=== PATIENT | male | born 1950 | race Caucasian/White ===

== ENCOUNTER → 2016-05-04 | Outpatient (CLI) | payer BC ==
[2014-09-13 09:10] VITALS: BP 133/76
[~2016-05-04] MED LIST: ACET-1570 PO; ALLO300T PO; ASPI81TA2 PO; CYAN1TAB15 SL; FISH1CAP PO; LISI10TA2 PO; METO25TA9 PO; NITR0.4T SL; PIOG15TA2 PO; SIMV20TA3 PO; ZOLP12.54 PO
[2016-05-04 12:42] LABS: BASO # 0.1 x10^3/uL (0.0-0.2); BASO % 1 % (0-3); EOS % 3 % (0-3); HEMATOCRIT 48.2 % (39.0-53.0); HEMOGLOBIN 16.6 g/dL (13.0-17.5); LYMPH # 1.5 x10^3/uL (1.0-4.8); LYMPH % 17 % (24-48); MEAN CORPUSCULAR HEMOGLOBIN 30 pg (25-35); MEAN CORPUSCULAR HGB CONC 34 g/dL (31-37); MEAN CORPUSCULAR VOLUME 87 fL (79-100); MONO % 7 % (0-9); NEUT % 72 % (31-73); PLATELET COUNT 228 x10^3/uL (140-400); RED BLOOD COUNT 5.51 x10^6/uL (4.30-5.70); RED CELL DISTRIBUTION WIDTH 13.9 % (11.5-14.5); WHITE BLOOD COUNT 9.2 x10^3/uL (4.0-11.0)
== END | disposition home or self-care (01) ==
LOC: LAB 12:23
PROVIDERS: ATTEND Orthopaedic Surgery
DX: M25.511 Pain in right shoulder (principal)
CPT/HCPCS: 36415; 85027; 85651; 86140

== ENCOUNTER → 2016-05-10 | Outpatient (CLI) | payer BC ==
[2014-09-13 09:10] VITALS: BP 133/76
[~2016-05-10] MED LIST changes: +GADOBUTROL 7.5 MMOL/7.5 ML VIAL INT ART ONE; +IOHEXOL 300 MG/ML 50 ML VIAL. INT ART ONE; +LIDOCAINE 1% Multi-Dose 20 ML VIAL. ID ONE
--- NOTE | 2016-05-10 14:38 | KCIC ---
PROCEDURE MRI of the cervical spine without contrast 05/10/2016 HISTORY Neck pain which radiates down the right shoulder. TECHNIQUE Unenhanced T1 weighted, T2 weighted and inversion recovery sagittal and gradient echo and T2 weighted axial images of the cervical spine were obtained. FINDINGS Minimal lateral curvature of the cervical spine is seen convex to the right. There is mild straightening of the normal cervical lordosis. Degenerative signal changes are seen involving all of the discs of the cervical spine. The marrow signal of the visualized bony structures is within normal limits. The cervical spinal cord is normal in morphology, position, and signal characteristics. On the axial images degenerative changes are seen throughout the cervical disc spaces consisting of minimal to mild generalized disc bulges and degenerative changes involving the uncovertebral and facet joints. Small superimposed focal disc protrusions are seen which measure 2 millimeters in AP diameter. These findings do not result in significant central spinal canal or neural foraminal stenosis at any level. IMPRESSION Degenerative changes are seen involving the cervical spine. These findings do not result in significant central spinal canal or neural foraminal stenosis at any level. Electronically signed by: Connor Abebe MD (May 10, 2016 14:36:00)
--- NOTE | 2016-05-10 15:29 | KCIC ---
PROCEDURE MR arthrogram of the right shoulder HISTORY Right shoulder pain for 6-8 months. Rotator cuff and biceps tendon repair June 2015. COMPARISON None TECHNIQUE Intra-articular contrast injected prior to the scan, and reported separately. The standard 4 plane sequences were obtained including ABER positioning. FINDINGS Mild degenerative osteoarthritis of the acromioclavicular joint. Evidence of rotator cuff repair with suture anchors at the humeral head. Diffuse thinning of the undersurface of supraspinatus and infraspinatus tendons, greatest at the supraspinatus myotendinous junction measuring as thin as 2 mm.. No evidence of a through and through rupture. No evidence of subscapularis tendon tear. Some contrast within the subscapularis is thought to be due to the injection. Contrast does accumulate within the subdeltoid bursa. Blunting and deformity of the superior labrum and to a lesser extent the posterior labrum, compatible with tearing, unless postsurgical. The proximal biceps tendon is poorly visualized. No bone lesion or acute fracture. No acute soft tissue injury. IMPRESSION 1. Diffuse thinning of the supraspinatus and infraspinatus tendons, could be due to the nature the reattached tendon. No through and through full-thickness rupture. 2. Small and blunted posterosuperior labrum compatible with tearing unless this is postsurgical. 3. Poorly seen proximal biceps tendon. Electronically signed by: Feliz Marcos MD (May 10, 2016 15:27:45)
--- NOTE | 2016-05-10 16:58 | KCIC ---
PROCEDURE: Right shoulder injection using fluoroscopic guidance, prior to MR. HISTORY: Shoulder pain. TECHNIQUE: The procedure was explained to the patient as were potential risks, including among others infection, bleeding or allergic reaction. All questions were answered. Informed written and verbal consent was obtained. The shoulder was prepped and draped in the usual sterile manner. Following administration of local anesthetic, a 22-gauge needle was advanced into the anterior shoulder. Following negative aspiration, 12 cc of a solution of 5cc Omnipaque-300 contrast, 5 cc 1% lidocaine, 10 cc normal saline, and 0.1 cc gadolinium was injected without difficulty. The needle was removed. There was good hemostasis at the injection site. The patient left in stable condition without immediate complication. The patient was given postprocedural instructions, and instructed to contact us or the ER if there are any complications. A single spot image is obtained. FLUOROSCOPY TIME: 38 seconds Electronically signed by: Feliz Marcos MD (May 10, 2016 16:56:25)
== END | disposition home or self-care (01) ==
LOC: KCIC 10:22
PROVIDERS: ATTEND Orthopaedic Surgery
DX: S43.421A Sprain of right rotator cuff capsule, initial encounter (principal); M75.21 Bicipital tendinitis, right shoulder
CPT/HCPCS: 72141; 73040; 73222; Q9967; A9585

== ENCOUNTER → 2016-06-14 | Outpatient (CLI) | payer BC ==
[2014-09-13 09:10] VITALS: BP 133/76
[~2016-06-14] MED LIST changes: -GADOBUTROL 7.5 MMOL/7.5 ML VIAL INT ART ONE; -IOHEXOL 300 MG/ML 50 ML VIAL. INT ART ONE; -LIDOCAINE 1% Multi-Dose 20 ML VIAL. ID ONE
[2016-06-14 10:18] LABS: BILIRUBIN,URINE SMALL (NEG); GLUCOSE,URINE NEGATIVE (NEG); NITRITE,URINE NEGATIVE (NEG); PH,URINE 5.5; PROTEIN,URINE 30 mg/dL (NEG-TRACE)
--- NOTE | 2016-06-14 10:26 | EKG ---
[facility] [address] [place] [address] Test Date: 2016-06-14 Test Time: 10:27:25 Pat Name: SERENA KIRKPATRICK Department: Room: Gender: M Java Application Developer: TV : 1950 Requested By: MECHE RALPH Order Number: [id number] Reading MD: Zion Barker Measurements Intervals [place] Rate: 59 P: 40 LA: 184 QRS: -4 QRSD: 100 T: 22 QT: 410 QTc: 410 Interpretive Statements SINUS RHYTHM Electronically Signed On 06-15-2016 12:24:59 CDT by Zion Barker
[2016-06-14 10:32] LABS: BACTERIA,URINE FEW /HPF (0-FEW); SQUAMOUS EPITHELIAL CELL,UR FEW /LPF; WBC,URINE OCC /HPF (0-4)
[2016-06-14 11:33] LABS: BASO # 0.1 x10^3/uL (0.0-0.2); BASO % 1 % (0-3); EOS % 4 % (0-3); HEMATOCRIT 46.5 % (39.0-53.0); HEMOGLOBIN 15.6 g/dL (13.0-17.5); LYMPH # 1.3 x10^3/uL (1.0-4.8); LYMPH % 24 % (24-48); MEAN CORPUSCULAR HEMOGLOBIN 30 pg (25-35); MEAN CORPUSCULAR HGB CONC 34 g/dL (31-37); MEAN CORPUSCULAR VOLUME 90 fL (79-100); MONO % 9 % (0-9); NEUT % 62 % (31-73); PLATELET COUNT 204 x10^3/uL (140-400); RED BLOOD COUNT 5.15 x10^6/uL (4.30-5.70); RED CELL DISTRIBUTION WIDTH 13.7 % (11.5-14.5); WHITE BLOOD COUNT 5.2 x10^3/uL (4.0-11.0)
[2016-06-14 11:43] LABS: INR 1.1 (0.8-1.1); PROTHROMBIN TIME PATIENT 13.4 SEC (11.7-14.0)
[2016-06-14 11:47] LABS: CREATININE 0.9 mg/dL (0.7-1.3); GFR 84.7; POTASSIUM 3.1 mmol/L (3.5-5.1)
--- NOTE | 2016-06-14 14:23 | RAD ---
Chest, 2 views, 06/14/2016: History: Preop evaluation for rotator cuff surgery. The heart size and pulmonary vascularity are normal. There is calcific plaquing of the aorta. There is mild bibasilar linear scarring or atelectasis. The lungs are otherwise clear. There is no evidence of pleural fluid. IMPRESSION: 1. Aortic atherosclerosis. 2. Mild bibasilar linear scarring or atelectasis.
== END | disposition home or self-care (01) ==
LOC: SURGPAT 09:49
PROVIDERS: ATTEND Orthopaedic Surgery
DX: Z01.818 Encounter for other preprocedural examination (principal)
CPT/HCPCS: 36415; 71020; 80048; 81001; 82040; 83036; 85027; 85610; 85651; 85730; 87641; 93005

== ENCOUNTER 2017-04-19 18:12 | Emergency (ER) | payer OTHER, MEDICARE, BC | END 2017-04-19 20:04 | disposition home or self-care (01) | LOC: ER 18:12 | DX: T14.8XXA Other injury of unspecified body region, initial encounter (principal); E11.9 Type 2 diabetes mellitus without complications; E78.00 Pure hypercholesterolemia, unspecified; I10 Essential (primary) hypertension; Z90.49 Acquired absence of other specified parts of digestive tract; Z95.5 Presence of coronary angioplasty implant and graft; Z88.8 Allergy status to other drugs, medicaments and biological substances; V43.52XA Car driver injured in collision with other type car in traffic accident, initial encounter; Y93.I9 Activity, other involving external motion; Y92.410 Unspecified street and highway as the place of occurrence of the external cause; Y99.8 Other external cause status | CPT/HCPCS: 99283 ==

== ENCOUNTER 2018-10-05 07:21 | Emergency (ER) | payer BC, OTHER ==
[~2018-10-05] VITALS: Ht 182.9 cm; Wt 126.1 kg
[~2018-10-05 07:21] MED LIST changes: -ACET-1570 PO; +ACET-1571 PO; +ASPI-630 PO; -ASPI81TA2 PO; +CYCL5TAB PO; +HYDR-3164 PO; +METO-239 PO; -METO25TA9 PO; -PIOG15TA2 PO; +PIOG15TA63 PO
[2018-10-05] MEDS ORDERED: ACETAMINOPHEN 500 MG TABLET PO ONE (07:30)
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
[2018-10-05 08:14] VITALS: BP 170/82
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
[2018-10-05] MEDS ORDERED: CYCL10TA2 PO (08:32)
== END 2018-10-05 08:38 | disposition home or self-care (01) ==
LOC: ER 07:21
DX: S16.1XXA Strain of muscle, fascia and tendon at neck level, initial encounter (principal); S29.012A Strain of muscle and tendon of back wall of thorax, initial encounter; S39.012A Strain of muscle, fascia and tendon of lower back, initial encounter; E11.9 Type 2 diabetes mellitus without complications; E78.00 Pure hypercholesterolemia, unspecified; I10 Essential (primary) hypertension; Z90.49 Acquired absence of other specified parts of digestive tract; Z88.8 Allergy status to other drugs, medicaments and biological substances; V43.92XA Unspecified car occupant injured in collision with other type car in traffic accident, initial encounter; Y93.89 Activity, other specified; Y92.410 Unspecified street and highway as the place of occurrence of the external cause; Y99.8 Other external cause status
CPT/HCPCS: 72072; 72100; 72125; 99284